=== PATIENT | male | born 1975 | race Caucasian/White ===

== ENCOUNTER 2017-01-05 09:29 | Emergency (ER) | payer OTHER | END 2017-01-05 10:09 | disposition home or self-care (01) | LOC: FER 09:29 | DX: H16.132 Photokeratitis, left eye (principal); E11.9 Type 2 diabetes mellitus without complications; I11.0 Hypertensive heart disease with heart failure; I50.9 Heart failure, unspecified; H40.9 Unspecified glaucoma; Z23 Encounter for immunization | CPT/HCPCS: 90471; 90715 ==